=== PATIENT | male | born 1950 | race Caucasian/White ===

== ENCOUNTER 2017-02-07 17:53 | Emergency (ER) | payer MEDICARE ==
[~2017-02-07] VITALS: Ht 188 cm; Wt 90.0 kg
[~2017-02-07 17:53] MED LIST: AMOXICILLIN875 MG PO; ASPIRIN EC81 MG PO; ASPIRIN81 MG OR; CORTISPORIN OTI10 ML AD; FLEXERIL OR; LIPITOR10 MG OR; LIPITOR20 MG PO; MULTIVITAM10 OR; MULTIVITAMI1 PO; PROCARDIA XL30 MG OR; ULTRAM50 M1 PO
[2017-02-07] MEDS ORDERED: PERCOCET 5/325M1 TAB PO (18:37)
[2017-02-07 18:48] VITALS: BP 139/73
== END 2017-02-07 19:07 | disposition home or self-care (01) ==
LOC: ED 17:53
PROC: 0HQ0XZZ Repair Scalp Skin, External Approach (ICD-10-PCS; principal; 2017-02-07)
DX: S01.01XA Laceration without foreign body of scalp, initial encounter (principal); W01.198A Fall on same level from slipping, tripping and stumbling with subsequent striking against other object, initial encounter; Y93.89 Activity, other specified; Y92.009 Unspecified place in unspecified non-institutional (private) residence as the place of occurrence of the external cause

== ENCOUNTER 2022-05-06 21:21 | Emergency (ER) | payer MEDICARE ==
[2022-05-06] VITALS (9 sets, daily range): BP systolic 103–118; BP diastolic 59–72
[~2022-05-06] VITALS: Ht 188 cm; Wt 78.0 kg
[~2022-05-06 21:21] MED LIST changes: +PERCOCET 5/325M1 TAB PO
[2022-05-06 22:11] LABS: IMMATURE GRANULOCYTES 0.3 % (0.0-5.0); MEAN CELL VOLUME 97.7 fL CALC (80.0-100.0); MEAN CORPUSCULAR HGB CONC 33.7 g/dL CAL (32.0-36.0); NEUT# 15.94 thou/uL (1.82-7.42); RED BLOOD COUNT 3.55 mill/uL (4.70-6.10); RED CELL DISTRI WIDTH 12.4 % (11.5-15.5)
[2022-05-06 22:12] LABS: HEMATOCRIT 34.7 % (39.0-50.0); HEMOGLOBIN 11.7 g/dl (14.0-18.0)
[2022-05-06 22:24] LABS: BILIRUBIN, TOTAL 0.8 mg/dL (0.0-1.4); BUN 9 mg/dL (8-23); BUN/CREATININE RATIO 9 (12-20 (CALC)); CHLORIDE 96 mmol/l (95-108); CPK 31 u/l (52-200); GFR FOR AFR.AMER. > 60 ML/MIN (>=60 (CALC)); GFR OTHER RACES > 60 ML/MIN (>=60 (CALC)); LIPASE 289 u/l (23-300); MAGNESIUM 1.9 mg/dL (1.6-2.3); POTASSIUM 3.9 mmol/l (3.5-5.1); SGOT/AST 30 u/l (19-48); SODIUM 130 mmol/l (137-146); TOTAL PROTEIN 7.2 g/dL (6.3-8.2)
[2022-05-06 22:27] LABS: ALKALINE PHOSPHATASE 155 u/l (38-126); ANION GAP 15 (6-22 (CALC)); CARBON DIOXIDE 23 mmol/l (22-30)
[2022-05-07] VITALS (24 sets, daily range): BP systolic 100–145; BP diastolic 58–77
[2022-05-07 03:44] LABS: URINE BILIRUBIN - DIPSTICK NEGATIVE (NEGATIVE); URINE BLOOD DIPSTICK MODERATE (NEGATIVE); URINE COLOR YELLOW; URINE GLUCOSE - DIPSTICK NEGATIVE (NEGATIVE); URINE KETONE NEGATIVE (NEGATIVE); URINE PROTEIN - DIPSTICK NEGATIVE (NEG-TRACE); URINE UROBILINOGEN - DIPSTICK 0.2 E.U./dL (0.2)
[2022-05-07 03:45] LABS: URINE LEUK ESTERASE MODERATE (NEGATIVE); URINE NITRITE - DIPSTICK POSITIVE (Negative)
[2022-05-07 03:52] LABS: URINE BACTERIA MODERATE hpf; URINE SQUAMOUS EPITHELIAL CELL FEW EPI/hpf (0-FEW); URINE WBC 50-100 WBC/hpf (0-5)
== END 2022-05-07 06:32 | disposition designated cancer center or children's hospital (05) ==
LOC: ED 21:21
PROVIDERS: Internal Medicine
DX: R00.0 Tachycardia, unspecified (principal); R18.8 Other ascites; K63.89 Other specified diseases of intestine; M54.50 Low back pain, unspecified; L03.90 Cellulitis, unspecified; R74.8 Abnormal levels of other serum enzymes; C18.9 Malignant neoplasm of colon, unspecified; Z93.3 Colostomy status; Z20.822 Contact with and (suspected) exposure to COVID-19
CPT/HCPCS: Q9967